=== PATIENT | female | born 1955 | race Caucasian/White ===

== ENCOUNTER → 2017-04-25 | Outpatient (CLI) | payer OTHER | LOC: CIMAGING 08:03 | PROVIDERS: ATTEND Orthopaedic Surgery Foot and Ankle Surgery | DX: S82.202D Unspecified fracture of shaft of left tibia, subsequent encounter for closed fracture with routine healing (principal); S82.402D Unspecified fracture of shaft of left fibula, subsequent encounter for closed fracture with routine healing; M19.072 Primary osteoarthritis, left ankle and foot | CPT/HCPCS: 73700-PO ==

== ENCOUNTER → 2017-10-06 | Outpatient (CLI) | payer OTHER | LOC: BRMIMAGING 14:05 | PROVIDERS: ATTEND Family Medicine | DX: Z13.820 Encounter for screening for osteoporosis (principal) ==